=== PATIENT | male | born 1965 | race Caucasian/White ===

== ENCOUNTER 2022-06-10 06:32 | Emergency (ER) | payer OTHER ==
[~2022-06-10] VITALS: Ht 185.4 cm; Wt 141.3 kg
[2022-06-10 06:49] VITALS: BP 142/95
[2022-06-10] MEDS ORDERED: IBUP800T26 PO (14:06)
== END 2022-06-10 14:58 | disposition left against medical advice (07) ==
LOC: ER 06:32
DX: R07.89 Other chest pain (principal); M54.2 Cervicalgia; H53.8 Other visual disturbances; V29.99XA Rider (driver) (passenger) of other motorcycle injured in unspecified traffic accident, initial encounter; Y93.55 Activity, bike riding; Y92.488 Other paved roadways as the place of occurrence of the external cause; Y99.8 Other external cause status
CPT/HCPCS: 70450; 70486; 71250; 72125; 74176